=== PATIENT | female | born 1940 | race Caucasian/White ===

== ENCOUNTER → 2017-06-08 | Day surgery (SDC) | payer OTHER ==
[2017-05-26 09:13] VITALS: Ht 156.2 cm; Wt 98.2 kg
[~2017-06-08] VITALS: Ht 156.2 cm; Wt 98.2 kg
[~2017-06-08] MED LIST: 500ML BSS 0.3ML EPI 1:1000PF IRRIG ONE; ACETAMINOPHEN 325 MG TAB PO PRN; AMVISC PLUS 0.8ML SYRINGE INT OCU ONE; AREDS2 PO; ASPI81TA28 PO; ATOR-24 PO; ATROPINE SULFATE 0.1 MG/ML 5ML SYR IV PRN; ATV1 PO; B COCAP3 PO; BRIMONIDINE TART 0.2% OP SOLN PER DROP CHARGE ONE; BSS FLUSH ONE; CLOP1TAB15 PO; ENDOCOAT 0.85ML SYRINGE INT OCU ONE; EpHEDrine SULFATE INJ 50 MG/ML AMP IV PRN; EpINEphrine INJ 1MG/ML AMP 1 MG/ML AMP ONE; LACTATED RINGER'S 1000ML 500 ML IV SCH; LEVO100T7 PO; LIDOCAINE 4% OP SOLN DROP CHARGE ONE; LIDOCAINE 4% OP SOLN DROP CHARGE OPR SCH; LIDOCAINE HCL 1% MPF 2 ML VIAL ONE; LOSA1TAB PO; MIDAZOLAM HCL 1 MG/ML 2ML VIAL ONE; MOXIFLOXACIN OPH SOLN PER DROP CHARGE ONE; NTRGSL/4 UT; POTA-335 PO; POVIDONE-IODINE OP SOLN 30 ML BTL ONE; PROPARACAINE 0.5% OP SOLN PER DROP CHARGE OPR SCH; TOBRAMYCIN/DEXAMETHASONE OPH OINT PER APPLN CHARGE ONE; TRAM-10 PO
[2017-06-08] MEDS: PHENYLEPHRINE HCL 2.5% OP SOLN PER DROP CHARGE OPR SCH ×2 (10:08→10:13)
[2017-06-08] MEDS: TROPICAMIDE 1% OP SOLN PER DROP CHARGE OPR SCH ×2 (10:09→10:14)
[2017-06-08] MEDS: CYCLOPENTOLATE HCL 1% OP SOLN PER DROP CHARGE OPR SCH ×2 (10:10→10:15)
[2017-06-08] MEDS: KETOROLAC 0.5% OP SOLN PER DROP CHARGE OPR SCH ×2 (10:11→10:16)
[2017-06-08] MEDS: MOXIFLOXACIN OPH SOLN PER DROP CHARGE OPR SCH ×2 (10:12→10:25)
--- NOTE | 2017-06-08 10:46 | History & Physical Bridge - [place] ---
H&P Re-Evaluation Bridge Note: I have examined the patient, reviewed the History & Physical and in the interval since the performance of the History & Physical I have noted the following changes of clinical significance: No changes noted
--- NOTE | 2017-06-08 11:41 | Discharge Instructions-SurgCtr ---
Discharge Instructions Date of Service Jun 08, 2017. Visit Reason for Visit: Cataract Right Eye Discharge Discharge Diagnosis / Problem: cataract right eye Discharge Goals Goal(s): Improve function Activity Recommendations Activity Limitations: per Instructions/Follow-up section Lifting Limitations: no more than 5 pounds Anesthesia . Post Anesthesia Instructions: If you have had General Anesthesia or IV Sedation: * Do not drive today. * Resume driving when surgeon permits. * Do not make important decisions or sign legal documents today. * Call surgeon for: 1. Temperature elevations greater than 101 degrees F. 2. Uncontrollable pain. 3. Excessive bleeding. 4. Persistent nausea and vomiting. 5. Medication intolerance (nausea, vomiting or rash). * For nausea and vomiting use only clear liquids such as: tea, soda, bouillon until nausea subsides, then gradually increase diet as tolerated. * If you have any concerns or questions, call your surgeon's office. If physician is unavailable and it is an emergency, call 911 or go to the nearest emergency room. . Instructions / Follow-Up Instructions / Follow-Up ACTIVITY RECOMMENDATIONS: * Light activities * You may walk outside, read, watch television. * Mild irritation and blurred vision are common for the first few days, redness around the white part of the eye is common. MEDICATIONS: Resume previous medications unless instructed otherwise by your surgeon. Eye drops (today and tomorrow): Cipro - one drop in operative eye every 2 hours while awake Prednisolone 1% - one drop in operative eye every 2 hours while awake Bromfenac - one drop in operative eye once daily SPECIAL CARE INSTRUCTIONS: * If any problems or concerns, please call Dr. Smith's office at . * Keep plastic shield taped over eye to sleep at night. * Keep plastic shield taped over eye except to administer eye drops. * Keep plastic shield on until office visit the following day. FOLLOW UP VISIT: Follow-up with Dr. Smith in the [place] office as scheduled. If not already scheduled, please call the office at . Diet Recommendations Home Diet: resume previous diet Procedures Procedures Performed: Right Cataract Phacoemulsification With Intraocular Lens Implant Pending Studies Studies pending at discharge: no Medical Emergencies . Who to Call and When: Medical Emergencies: If at any time you feel your situation is an emergency, please call 911 immediately. . Non-Emergent Contact Non-Emergency issues call your: Food Scientist . . "Provider Documentation" section prepared by Tobias Smith. .
--- NOTE | 2017-06-08 11:44 | [facility] Operative Report ---
Operative Report Operative Date Jun 08, 2017. Pre-Operative Diagnosis Right Eye Cataract Post-Operative Diagnosis Same Procedure(s) Performed Right Cataract Phacoemulsification With Intraocular Lens Implant Surgeon Dr. Marilyn Smith Communications Equipment Supervisor Surgeon(s) None Estimated Blood Loss 0 Findings cataract right eye Fluids (cc crystalloids) see anesthesia record Specimens None Drains none Anesthesia local with sedation Complication(s) None Disposition Recovery Room / PACU Implants mx60 21.5 Indications decreased vision right eye Description of Procedure After informed consent was obtained in the holding area the patient was wheeled back to the operating room where cardiac monitoring leads and oxygen by nasal cannula was administered by Anesthesia. Gentle IV sedation was given, and the patient's right eye was prepped and draped in usual sterile fashion. A wire lid speculum was placed into the right eye and the operating microscope was swung into position. Using 0.12 forceps and a Supersharp blade a paracentesis port was made 2 o'clock hours away from the 9 o'clock position of the patient's right eye. 1% non-preserved Lidocaine was then injected into the anterior chamber for anesthesia. A 2.0 mm keratotome blade was then used to make a shelved clear corneal incision at the 9 o'clock position of the right eye. Amvisc was injected into the anterior chamber and a cystotome and Utrata forceps were used to perform a curvilinear capsulorrhexis. BSS on a hydrodissection cannula was used to hydrodissect the lens nucleus away from the capsular bag. The phacoemulsification handpiece was then used in a stop and chop fashion to remove the lens nucleus. The irrigation and aspiration handpiece was then used to remove the residual cortical material. Amvisc was injected into the capsular bag and anterior chamber and a [employer]ch [employer] Lomb MX60 21.5 Diopter intraocular lens was injected into the capsular bag. Irrigation and aspiration handpiece was used to remove the residual viscoelastic material. The wounds were hydrated and noted to be watertight. The wire lid speculum was removed from the eye. Vigamox, Brimonidine, and TobraDex ointment were placed on the eye and it was shielded. It should be noted that EndoCoat was used extensively during the case to protect the cornea endothelium. DISPOSITION: The patient tolerated the procedure well and was wheeled to the post anesthesia care unit in stable condition. I attest to the content of the Intraoperative Record and any orders documented therein. Any exceptions are noted below. I attest to the content of the Intraoperative Record and any orders documented therein. Any exceptions are noted below.
--- NOTE | 2017-06-08 11:56 | Anesthesia Progress Nt - [facility] ---
Anesthesia Post Op Note Date & Time Jun 08, 2017 at 11:56 Vital Signs Pain Intensity: 0 Vital Signs Past 12 Hours Date Time Temp Pulse Resp B/P (MAP) Pulse Ox O2 Delivery O2 Flow Rate FiO2 06/08/17 11:46 36.5 61 14 138/80 (99) 96 Room Air 06/08/17 10:01 36.4 85 20 158/108 (125) 97 Room Air Notes Mental Status: alert / awake / arousable, participated in evaluation Pt Amnestic to Procedure: Yes Nausea / Vomiting: adequately controlled Pain: adequately controlled Airway Patency, RR, SpO2: stable & adequate BP & HR: stable & adequate Hydration State: stable & adequate Anesthetic Complications: no major complications apparent
[2017-06-08 12:03] VITALS: BP 138/72; PULSE 55; TEMP 36.5; O2SAT 98
== END | disposition home or self-care (01) ==
LOC: X.SURG 09:42
PROVIDERS: ATTEND Ophthalmology
DX: H25.11 Age-related nuclear cataract, right eye (principal); I10 Essential (primary) hypertension; I51.9 Heart disease, unspecified; E03.9 Hypothyroidism, unspecified; E78.5 Hyperlipidemia, unspecified; Z95.1 Presence of aortocoronary bypass graft

== ENCOUNTER 2019-11-20 18:31 | Inpatient (IN) ==
[2019-11-20] MEDS ORDERED: SODIUM CHLORIDE 0.9% 500 ML IV ONE (19:01)
[2019-11-20] MEDS ORDERED: DiphenhydrAMINE HCL 50 MG/ML VIAL IV STA (19:05)
[2019-11-20] MEDS ORDERED: SODIUM CHLORIDE 0.9% 500 ML IV SCH (19:15)
[2019-11-20 19:29] LABS: Basophils # (auto) 0.01 K/uL (0-0.2); Basophils % (auto) 0.1 %; Hematocrit (blood only) 39.2 % (37-47); Hemoglobin 12.9 g/dL (12.0-16.0); Immature Granulocytes # (auto) 0.01 K/uL (0.00-0.02); Immature Granulocytes % (auto) 0.1 %; Lymphocytes # (auto) 0.32 K/uL (1.2-3.4); Mean Corpuscular Hemoglobin 33.4 pg (25-34); Mean Corpuscular Hgb Conc 32.9 g/dL (32-36); Mean Corpuscular Volume 101.6 fL (80-100); Mean Platelet Volume 10.7 fL (7.4-10.4); Monocytes % (auto) 6.2 %; Neutrophils # (auto) 7.24 K/uL (1.4-6.5); Neutrophils % (auto) 89.6 %; Platelet Count 191 K/uL (130-400); RDW Coefficient of Variation 14.7 % (11.5-14.5); RDW Standard Deviation 54.5 fL (36.4-46.3); Red Blood Count 3.86 M/uL (4.2-5.4); White Blood Count 8.08 K/uL (4.8-10.8)
[2019-11-20 19:39] LABS: Partial Thromboplastin Ratio 0.9; Partial Thromboplastin Time 25.1 Seconds (21.0-31.0); Prothrombin Time 10.3 Seconds (9.0-12.0)
[2019-11-20 19:46] LABS: Alanine Aminotransferase 18 U/L (12-78); Albumin Level 3.5 gm/dl (3.4-5.0); Aspartate Aminotransferase 18 U/L (15-37); BUN Creatinine Ratio 18.9 (10-20); Blood Urea Nitrogen 18 mg/dl (7-18); Carbon Dioxide 25 mmol/L (21-32); Chloride 105 mmol/L (98-107); Est GFR (African American) 67.8; Est GFR (Non-African American) 58.5; Glucose 126 mg/dl (70-99); Lipase 42 U/L (73-393); Magnesium 1.8 mg/dl (1.8-2.4); Potassium 3.6 mmol/L (3.5-5.1); Sodium 138 mmol/L (136-145)
[2019-11-20 19:57] LABS: Albumin Globulin Ratio 0.9 (0.9-2); Alkaline Phosphatase 75 U/L (45-117); Bilirubin,Total 0.4 mg/dl (0.2-1); Phosphorus 1.9 mg/dl (2.5-4.9); Total Protein 7.5 gm/dl (6.4-8.2); Troponin I < 0.015 ng/ml (0-0.045)
--- NOTE | 2019-11-20 19:59 | XRay Report ---
XR chest 1V portable HISTORY: Atypical Chest Pain COMPARISON: Chest 11/18/2019. FINDINGS: Persistent elevation right hemidiaphragm. There are poststernotomy changes. The heart is no rmal in size. Mild interstitial thickening is likely chronic. No evidence for pulmonary edema. No new focal lung consolidations to suggest pneumonia. No pleural effusions. No pneumothorax. IMPRESSION: 1. No acute process within the chest. 2. Chronic elevation of the right hemidiaphragm. 3. No change in the chronic interstitial thickening. ACT 112: Negative or not required by law. Electronically signed by: Lopez Mina M.D. 11/20/2019 7:57 PM
[2019-11-20 20:12] LABS: T4 Free Thyroxine 0.67 ng/dl (0.8-1.6)
[2019-11-20] MEDS ORDERED: OPTIRAY 320 125ml IV PRN (20:47)
--- NOTE | 2019-11-20 20:52 | CT Scan Report ---
HEAD CT NONCONTRAST CT DOSE: 1258.80 mGy.cm HISTORY: vertigo TECHNIQUE: Multiaxial CT images of the head were performed without the use of intravenous contrast. A utomated exposure control was utilized for this study. A dose lowering technique was utilized adheri ng to the principles of ALARA. Comparison: Head CT 01/14/2006. Findings: Small bilateral mastoid effusions. Fluid levels within the sphenoid sinuses with near compl ete opacification of the right sphenoid sinus. The calvarium and skull base are intact. There is no m ass, hematoma, midline shift, acute infarct. White matter hypodensity is nonspecific but suggestive o f microvascular ischemic change. The ventricles and sulci demonstrate mild age-related involutional c hanges. 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 Impression: No acute intracranial abnormality. Atrophy and microvascular ischemic changes. Sinus disease as descr ibed above. ACT 112: Negative or not required by law. Electronically signed by: Lopez Mina M.D. 11/20/2019 8:51 PM
--- NOTE | 2019-11-20 21:05 | CT Scan Report ---
HEAD & NECK CTA HISTORY: vertigo TECHNIQUE: Multiaxial CT images of the head were performed following the intravenous administration o f contrast to evaluate the major cerebral vessels. Multiaxial CT images of the neck were also perform ed following the intravenous administration of contrast to evaluate the major cervical vessels. Maxim um intensity projection images were also obtained. A dose lowering technique was utilized adhering to the principles of ALARA. COMPARISON: None. FINDINGS: There is no mass, hematoma, midline shift, or acute infarct. Visualized intracranial internal carotid arteries, distal vertebral arteries, and basilar artery are widely patent. There is no significant s tenosis, occlusion, or aneurysm seen within the bilateral ACAs, MCAs, or assembler utility buildings. 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 The right P1 segment is also severely hypoplastic with the right BODY TRIMMER being fed primarily through the posterior communicating artery. 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 Calcified plaque seen within the bilateral carotid siphons. The aortic arch and proximal great vessels are widely patent. Bilateral vertebral arteries and bila teral common carotid arteries are widely patent. There is approximately 60% focal stenosis seen at th e origin of the right internal carotid artery. Focal penetrating ulcer at the takeoff of the left int ernal carotid artery which measures 4 mm. No significant stenosis within the left internal carotid ar joel. IMPRESSION: 1. No significant stenosis, occlusion, or aneurysm within the [place]. 2. Approximately 60% focal stenosis at the origin of the right internal carotid artery. 2. Focal penetrating ulcer at the takeoff of the left internal carotid artery which measures 4 mm. No significant stenosis. ACT 112: Negative or not required by law. Electronically signed by: Lopez Mina M.D. 11/20/2019 9:04 PM
--- NOTE | 2019-11-20 21:05 | CT Scan Report ---
HEAD & NECK CTA HISTORY: vertigo TECHNIQUE: Multiaxial CT images of the head were performed following the intravenous administration o f contrast to evaluate the major cerebral vessels. Multiaxial CT images of the neck were also perform ed following the intravenous administration of contrast to evaluate the major cervical vessels. Maxim um intensity projection images were also obtained. A dose lowering technique was utilized adhering to the principles of ALARA. COMPARISON: None. FINDINGS: There is no mass, hematoma, midline shift, or acute infarct. Visualized intracranial internal carotid arteries, distal vertebral arteries, and basilar artery are widely patent. There is no significant s tenosis, occlusion, or aneurysm seen within the bilateral ACAs, MCAs, or on line csr. 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 The right P1 segment is also severely hypoplastic with the right EYEGLASS FRAMES POLISHER being fed primarily through the posterior communicating artery. 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 Calcified plaque seen within the bilateral carotid siphons. The aortic arch and proximal great vessels are widely patent. Bilateral vertebral arteries and bila teral common carotid arteries are widely patent. There is approximately 60% focal stenosis seen at th e origin of the right internal carotid artery. Focal penetrating ulcer at the takeoff of the left int ernal carotid artery which measures 4 mm. No significant stenosis within the left internal carotid ar joel. IMPRESSION: 1. No significant stenosis, occlusion, or aneurysm within the [place]. 2. Approximately 60% focal stenosis at the origin of the right internal carotid artery. 2. Focal penetrating ulcer at the takeoff of the left internal carotid artery which measures 4 mm. No significant stenosis. ACT 112: Negative or not required by law. Electronically signed by: Lopez Mina M.D. 11/20/2019 9:04 PM
[2019-11-20] MEDS ORDERED: MAGNESIUM SULFATE / D5W 1 GM/100 ML BAG IV ONE (21:41)
[2019-11-20] MEDS ORDERED: POT PHOSPHATE MONOBASIC W/ SOD TAB PO STA (21:41)
[2019-11-21] MEDS ORDERED: GUAIFENESIN/CODEINE 100MG/10MG 5ML UDC PO PRN (00:24)
[2019-11-21] MEDS ORDERED: NITROGLYCERIN SL 0.4 MG/TAB TAB SL PRN ×2 (00:24)
[2019-11-21] MEDS ORDERED: SULFACETAMIDE SODIUM TOP SCH (00:24)
[2019-11-21] MEDS ORDERED: ONDANSETRON INJ 2 MG/ML 2 ML VIAL IV PRN (00:24)
[2019-11-21] MEDS ORDERED: NYSTATIN/TRIAMCIN CR 15 GM TUBE EXT PRN (00:24)
[2019-11-21] MEDS ORDERED: POLYETHYLENE (MIRALAX) 17 GM PACK PO PRN (00:24)
[2019-11-21] MEDS ORDERED: ACETAMINOPHEN 325 MG TAB PO PRN (00:24)
[2019-11-21] MEDS ORDERED: AZITHROMYCIN 250 MG TAB PO ONE (00:24)
[2019-11-21] MEDS ORDERED: TRAMADOL HCL 50 MG TABLET PO PRN (00:24)
[2019-11-21] MEDS ORDERED: LORazepam 1 MG TAB PO PRN (00:24)
[2019-11-21] MEDS ORDERED: GADOBUTROL 65ML VIAL IV PRN (01:59)
--- NOTE | 2019-11-21 02:06 | History and Physical Report ---
DATE OF ADMISSION: 11/20/2019 CHIEF COMPLAINT: Vertigo and fall. HISTORY OF PRESENT ILLNESS: This is a 79-year-old female with past medical history significant for non-ST elevation NC in 2006 with urgent CABG; history of diabetes, currently not on medication; hypertension; obesity; hyperlipidemia; PVCs; hypothyroidism; depression, who lives with his family, presents with vertigo kind of symptoms. The patient was here couple of days ago in the ER because of syncope. She was at the [facility]. When she got up, she felt lightheaded and lost consciousness. At that time, no seizure-like activity . In the Er she did was advised for admission, but the patient decided to go home.She is also having cough since several weeks now. She had a pneumonia and flu about a month ago. Since then the cough did not go away. She is still coughing a lot and she is not sleeping well because of cough, mostly dry cough. Denies any fever, chills. No chest pain, no shortness of breath, no headache. Feeling dizzy and lightheaded when walking and also some imbalance when ambulating. Today again while she was ambulating, she again felt the room spinning and fell down, but she was able to get up and walk again. Because of the ongoing symptoms, and she had second episode of falling down, she was brought in the ER. Currently resting comfortably and hemodynamically stable. Family in the room. Denies any headache, no blurred vision, no earache. Has some runny nose. Denies any sore throat. No dysphagia, odynophagia. Appetite is okay. No abdominal pain. Normal bladder movements. No hematuria. She has couple episodes of diarrhea today, but no black stools or blood in the stools. Denies any swelling in the legs. The imaging studies in the ER showed CT of the head is unremarkable. CTA of the head and neck was also done, which showed 60% focal stenosis of the origin of right internal carotid artery and focal penetrating ulcer at tip of the left internal carotid artery measuring 4 mm. No significant stenosis. ALLERGIES: METRONIDAZOLE. PAST MEDICAL HISTORY: As mentioned above. PAST SURGICAL HISTORY: CABG, sacroiliac joint injection, left cataract surgery, injection of lumbosacral spine. MEDICATIONS: The patient currently on aspirin 81 mg p.o. daily, atorvastatin 40 mg p.o. daily, vitamin D 2000 units p.o. daily, Plavix 75 mg p.o. daily, Flonase 2 sprays intranasally daily, levothyroxine 100 mcg p.o. daily, Ativan 1 mg p.o. at bedtime p.r.n., losartan 25 mg p.o. b.i.d., nitroglycerin 0.4 mg sublingual p.r.n., nystatin/triamcinolone topical b.i.d. p.r.n., potassium chloride 20 mEq p.o. b.i.d., stress B complex vitamin C and 1 tablet daily, sulfacetamide 1 apply topical b.i.d., tramadol 50 mg p.o. b.i.d. p.r.n. FAMILY HISTORY: Significant for father had heart disorder, hypertension, stroke. Mother has hypertension. SOCIAL HISTORY: , lives with family. No smoking, no alcohol, no drug use. REVIEW OF SYMPTOMS: As per HPI. Rest of review of symptoms negative. PHYSICAL EXAMINATION: GENERAL: The patient is of moderate build, not in acute distress. VITAL SIGNS: Temperature 37.2, pulse 84, respiratory rate 20, blood pressure 152/88, oxygen 94% room air. HEENT: No pallor, no icterus. Pupils equal, round, reactive to light. Extraocular muscles intact. No nystagmus seen. NECK: No JVD, no carotid bruit, no neck masses. CARDIOVASCULAR: S1, S2 heard. Regular rate and rhythm. No murmur, no gallop. RESPIRATORY SYSTEM: Normal AP diameter. No accessory muscle use. No wheezing, no crackles. ABDOMEN: Soft, bowel sounds present, nontender. No distention. CENTRAL NERVOUS SYSTEM: Alert and awake and oriented. No pronator drift. Coordination of movements normal. [id number] test normal. Sensation is intact. EXTREMITIES: Mild pedal edema, no erythema seen. LABORATORY DATA: WBC 8, hemoglobin 12.9, hematocrit 39.2, platelets 191. PT 13.3, INR 1, APTT 25.1. Sodium 138, potassium 3.6, chloride 105, bicarb 25, BUN 18 and creatinine 0.9, serum glucose 126, calcium 9, phosphorus 1.9, magnesium 1.8. Total bilirubin 0.4, AST 18, ALT 18, alkaline phosphatase 74. Troponin I less than 0.015. Lipase 42. TSH 4.5, free T4 0.6. IMAGING: CT of the head: No acute intracranial abnormality, atrophy or microvascular ischemic changes seen. CTA of the head and neck: No significant stenosis, occlusion or aneurysm within the [place]. Approximately 60% focal stenosis of the origin of right internal carotid artery, focal penetrating ulcer at tip of the internal carotid artery measuring 4 mm. No significant stenosis seen. Chest x-ray: No acute process seen. EKG: Normal sinus rhythm with rate of 79, no acute ST changes seen. ASSESSMENT AND PLAN: This is a 79-year-old female who presents with vertigo and syncope couple of days ago 1. Syncope couple of days ago, probably orthostatic, Today had vertigo with fall at home and some imbalance. On exam, she was benign. No nystagmus seen and no spinning of the room on movement of the head. We will observe on tele floor. We will do echocardiogram and also MRI of the head. Antivert p.r.n. and and consult Neurology in a.m. for further recommendations.PT/OT. 2. Carotid stenosis on the CTA of the neck, also showing some ulceration, 60% stenosis to right internal carotid artery and focal penetrating ulcer at the tip of the left internal carotid artery measuring 4 mm. We will consult Vascular Surgery in a.m. for further recommendations. 3. Diabetes, currently diet controlled, not on medications. Follow HbA1c levels. 4. History of CAD, status post CABG. On aspirin, statin, Plavix. Currently seems stable. Follow echocardiogram. 5. History of hypothyroidism. Synthroid 100 mcg. TSH slightly borderline high with low free T4. We will repeat the labs in a.m. May need to adjust the medication. Follow up with the PCP. 6. Hypertension. Continue losartan. We will monitor the blood pressure. 7. Hyperlipidemia, on statin. 8. DVT prophylaxis, SCDs for now. DISPOSITION: Admit to medical floor. Expected to discharge home and follow with family doctor. PT and OT prior to discharge. Social Service to help with discharge planning. ANNIE
[2019-11-21] MEDS: POTASSIUM CHLORIDE 20 MEQ TABCR PO SCH ×2 (02:16→08:05)
[2019-11-21] MEDS: LOSARTAN POTASSIUM 25 MG TAB PO SCH ×2 (02:16→08:04)
--- NOTE | 2019-11-21 03:15 | Emergency Department Note ---
Entered by Jesenia Harley acting as a scribe for History of Present Illness General Chief complaint: Vertigo Stated complaint: VERTIGO, FALL Time Seen by Provider: 11/20/19 18:45 Source: patient History of Present Illness Onset (ago): day(s) 3 Location: head Severity: similar to prior episodes Pain Consistency: + constant Relieved By: + none Exacerbated By: + other (Sitting up) Associated symptoms: + cough and + other (vertigo, diarrhea); no nausea/vomiting Treatments prior to arrival: none The patient is a 79 year old female who presents to the Emergency Room with complaints of vertigo that has been ongoing over the past 3 days. The patient was in the ED 2 days ago for a similar vertigo episode. She notes that she continued to experience these symptoms over the last 2 days. She states that her dizziness worsens when she sits up or gets up from a sitting position. The patients family states she was complaining of diarrhea, cough, and loss of appetite as well. She denies black or bloody stool, vomiting, and abdominal pa in. She notes that swelling in her legs is normal. The patient states she is willing to stay in the hospital if needed. Home Medications Home Medications Medication Instructions Recorded Confirmed Type Stress B-Complex/Vit C/Zinc 1 tab PO DAILY 09/05/18 11/20/19 History aspirin 81 mg PO DAILY 09/05/18 11/20/19 History atorvastatin 40 mg PO DAILY 09/05/18 11/20/19 History cholecalciferol (vitamin D3) 2,000 unit PO DAILY 09/05/18 11/20/19 History [Vitamin D3] clopidogrel 75 mg PO DAILY 09/05/18 11/20/19 History fluticasone propionate 2 spray INTRANASAL DAILY 09/05/18 11/20/19 History levothyroxine 100 mcg PO DAILYBB 09/05/18 11/20/19 History lorazepam 1 mg PO HS PRN 09/05/18 11/20/19 History losartan 25 mg PO BID 09/05/18 11/20/19 History nitroglycerin [Nitrostat] 0.4 mg SUBLINGUAL UD PRN MDD 3 09/05/18 11/20/19 History DOSES nystatin-triamcinolone 1 applic TOPICAL BID PRN 09/05/18 11/20/19 History potassium chloride [Klor-Con M20] 20 meq PO BID 09/05/18 11/20/19 History sulfacetamide sodium (acne) 1 applic TOPICAL BID 09/05/18 11/20/19 History tramadol 50 mg tablet 50 mg PO BID PRN 05/31/19 11/20/19 History Allergies Allergy/AdvReac Type Severity Reaction Status Date / Time metronidazole AdvReac Mild Diarrhea Verified 11/20/19 19:43 Past Med/Surg History Medical History Cat bite of right hand with infection (Resolved) Chronic ischemic heart disease, unspecified (Chronic) Congestive heart failure, unspecified (Resolved) Contusion of left foot (Resolved) Diabetes (Chronic) Heart attack (Resolved) Hypertension (Chronic) Hypothyroidism, unspecified (Chronic) Lumbar pain with radiation down left leg (Acute) Postsurgical aortocoronary bypass status (Resolved) Surgical History H/O tubal ligation (Chronic) Hx of CABG (Chronic) Social History Preferred Language: Niuean Communication Ability: Effective Hearing Ability: Normal 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 and A total of 10 systems reviewed and were otherwise negative Physical Exam Vital Signs Vital Signs - 24 hr 11/20/19 18:37 11/20/19 20:31 11/20/19 22:00 Temperature 37.2 C Temperature Source Oral Pulse Rate 101 H Pulse Rate [Apical] 84 Respiratory Rate 20 20 20 Respiratory Effort / Characteristics Non-Labored Spontaneous Non-Labored Spontaneous Non-Labored Spontaneous Respiratory Depth Normal Normal Normal Blood Pressure 163/83 H Blood Pressure [Right Arm] 135/82 152/88 H Blood Pressure Mean 109 Blood Pressure Mean [Right Arm] 99 109 Blood Pressure Position [Right Arm] Lying Lying Pulse Oximetry 92 94 94 Oxygen Delivery Method Room Air Room Air Room Air Sepsis Recent Fever Within 48 Hours No Sepsis Action Taken by Nursing No Action Required GENERAL: Awake, alert, fatigued but well-appearing, in no distress HENT: Normocephalic, atraumatic. Oropharynx with dry mucous membranes and otherwise unremarkable. EYES: Subtle chronic left eyelid ptosis. Normal conjunctiva. Sclera non-icteric. EOMI. No nystamgus. PEARRL. NECK: Supple. No nuchal rigidity. FROM. No JVD. RESPIRATORY: CTAB. CARDIAC: Regular rate, normal rhythm. Extremities warm and well perfused. Pulses equal. ABDOMEN: Soft, non-distended. No tenderness to palpation. No rebound or guarding. No masses. RECTAL: Deferred. MUSCULOSKELETAL: Chest examination reveals no tenderness. The back is symmetrical on inspection without obvious abnormality. There is no CVA tenderness to palpation. No joint edema. LOWER EXTREMITIES: Calves are equal size bilaterally and non-tender. No edema. No discoloration. NEURO: Normal sensorium. No sensory or motor deficits noted. 5/5 strength and SILT x4 extremities. Cerebellar function intact, including finger to nose, alternating palms, heel to carrera. SKIN: No rash or jaundice noted. Course Course 1853: Past medical records reviewed. The patient was evaluated in room C05. A complete history and physical exam was performed. 2213: I rechecked on the patient and discussed the possibility of staying in the hospital due to being dizzy and unstable. She was agreeable to staying for evaluation 2227: I spoke to Dr. Taylor, [facility] hospitalist, who agreed to take over care of the patient. The patient is agreeable to this plan and is willing to stay in the hospital. The patient will stay for further evaluation. Administered Medications Gadobutrol (Gadavist 65ml) 9 ml IV ONCE PRN PRN Reason: Interaction Checking Stop: 11/25/19 01:58 Last Admin: 11/21/19 01:40 Dose: 9 ml Documented by: [id number] Guaifenesin/Codeine Phosphate (Robitussin-Ac Sugar Free) 5 ml PO Q6H PRN PRN Reason: Cough Stop: 12/21/19 00:23 Last Admin: 11/21/19 00:40 Dose: 5 ml Documented by: [id number] Losartan Potassium (Cozaar) 25 mg PO BID RIVER Stop: 03/25/20 00:23 Last Admin: 11/21/19 02:16 Dose: 25 mg Documented by: [id number] Potassium Chloride (Klor-Con M20) 20 meq PO BID RIVER Stop: 12/21/19 00:23 Last Admin: 11/21/19 02:16 Dose: 20 meq Documented by: [id number] Discontinued Medications Azithromycin (Zithromax) 500 mg PO NOW ONE Stop: 11/21/19 00:25 Last Admin: 11/21/19 02:15 Dose: 500 mg Documented by: [id number] Diphenhydramine HCl (Benadryl) 12.5 mg IV NOW STA Stop: 11/20/19 19:06 Last Admin: 11/20/19 19:24 Dose: 12.5 mg Documented by: [id number] Sodium Chloride (Nss) 500 mls @ 999 mls/hr IV .Q31M ONE Stop: 11/20/19 19:31 Last Infusion: 11/20/19 19:57 Dose: 0 mls/hr Documented by: [id number] Admin: 11/20/19 19:24 Dose: 999 mls/hr Documented by: [id number] Magnesium Sulfate/Dextrose (Magnesium Sulfate / D5w) 1 gm in 100 mls @ 100 ml s/hr IV ONE ONE Stop: 11/20/19 22:40 Last Infusion: 11/21/19 00:04 Dose: 0 mls/hr Documented by: [id number] Admin: 11/20/19 22:28 Dose: 100 mls/hr Documented by: [id number] Ioversol (Optiray 320 125ml) 120 ml IV ONCE PRN PRN Reason: Interaction Checking Stop: 11/24/19 20:46 Last Admin: 11/20/19 20:47 Dose: 120 ml Documented by: [id number] Potassium Phosphate (Phospha 250 Neutral 155-852-130 Mg) 2 tab PO NOW STA Stop: 11/20/19 21:42 Last Admin: 11/20/19 22:28 Dose: 2 tab Documented by: [id number] Medical Decision Making Differential Diagnosis Differential diagnosis includes: benign positional vertigo, dehydration, hypovolemia, anemia, tumor, infection, hypoglycemia, electrolyte abnormalities, cardiac sources, intracerebral event, toxicologic, neurologic, as well as others were entertained. Medical Records Attestation: I reviewed the patient's medical records. Home Medications Current Medication List: was personally reviewed by me Laboratory Data Attestation: I reviewed the patient's lab results. Result diagrams: 11/20/19 19:18 11/20/19 19:18 Lab Results 11/20/19 11/20/19 11/20/19 Range/Units 19:18 19:18 19:18 WBC 8.08 (4.8-10.8) K/uL RBC 3.86 L (4.2-5.4) M/uL Hgb 12.9 (12.0-16.0) g/dL Hct 39.2 (37-47) % MCV 101.6 H (80-100) fL MCH 33.4 (25-34) pg MCHC 32.9 (32-36) g/dL RDW Std Deviation 54.5 H (36.4-46.3) fL RDW Coeff of Dawson 14.7 H (11.5-14.5) % Plt Count 191 (130-400) K/uL MPV 10.7 H (7.4-10.4) fL Immature Gran % (Auto) 0.1 % Neut % (Auto) 89.6 % Lymph % (Auto) 4.0 % [place] % (Auto) 6.2 % Eos % (Auto) 0.0 % Baso % (Auto) 0.1 % Immature Gran # (Auto) 0.01 (0.00-0.02) K/uL Neut # (Auto) 7.24 H (1.4-6.5) K/uL Lymph # (Auto) 0.32 L (1.2-3.4) K/uL [place] # (Auto) 0.50 (0.11-0.59) K/uL Eos # (Auto) 0.00 (0-0.5) K/uL Baso # (Auto) 0.01 (0-0.2) K/uL PT 10.3 (9.0-12.0) Seconds INR 1.0 (0.9-1.1) APTT 25.1 (21.0-31.0) Seconds PTT Ratio 0.9 Sodium 138 (136-145) mmol/L Potassium 3.6 (3.5-5.1) mmol/L Chloride 105 (98-107) mmol/L Carbon Dioxide 25 (21-32) mmol/L Anion Gap 8.0 (3-11) BUN 18 (7-18) mg/dl Creatinine 0.94 (0.6-1.2) mg/dl Est Cr Clr Drug Dosing Not Reportable Est GFR ( Amer) 67.8 Est GFR (Non-Af Amer) 58.5 BUN/Creatinine Ratio 18.9 (10-20) Glucose 126 H (70-99) mg/dl Calcium 9.0 (8.5-10.1) mg/dl Phosphorus 1.9 L (2.5-4.9) mg/dl Magnesium 1.8 (1.8-2.4) mg/dl Total Bilirubin 0.4 (0.2-1) mg/dl AST 18 (15-37) U/L ALT 18 (12-78) U/L Alkaline Phosphatase 75 (45-117) U/L Troponin I < 0.015 (0-0.045) ng/ml Total Protein 7.5 (6.4-8.2) gm/dl Albumin 3.5 (3.4-5.0) gm/dl Globulin 4.0 (2.5-4.0) gm/dl Albumin/Globulin Ratio 0.9 (0.9-2) Lipase 42 L (73-393) U/L TSH 4.530 H (0.300-4.500) uIu/ml Free T4 0.67 L (0.8-1.6) ng/dl Imaging Data Radiologist's Impression: Radiology results as stated below per my review and the radiologist's interpretation: HEAD CT NONCONTRAST CT DOSE: 1258.80 mGy.cm HISTORY: vertigo TECHNIQUE: Multiaxial CT images of the head were performed without the use of intravenous contrast. Automated exposure control was utilized for this study. A dose lowering technique was utilized adhering to the principles of ALARA. Comparison: Head CT 01/14/2006. Findings: Small bilateral mastoid effusions. Fluid levels within the sphenoid sinuses with near complete opacification of the right sphenoid sinus. The calvarium and skull base are intact. There is no mass, hematoma, midline shift, acute infarct. White matter hypodensity is nonspecific but suggestive of microvascular ischemic change. The ventricles and sulci demonstrate mild age- related involutional changes. 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 Impression: No acute intracranial abnormality. Atrophy and microvascular ischemic changes. Sinus disease as described above. ACT 112: Negative or not required by law. Electronically signed by: Lopez Mina M.D. 11/20/2019 8:51 PM HEAD & NECK CTA HISTORY: vertigo TECHNIQUE: Multiaxial CT images of the head were performed following the int ravenous administration of contrast to evaluate the major cerebral vessels. Multiaxial CT images of the neck were also performed following the intravenous administration of contrast to evaluate the major cervical vessels. Maximum intensity projection images were also obtained. A dose lowering technique was utilized adhering to the principles of ALARA. COMPARISON: None. FINDINGS: There is no mass, hematoma, midline shift, or acute infarct. Visualized intracranial internal carotid arteries, distal vertebral arteries, and basilar artery are widely patent. There is no significant stenosis, occlusion, or aneurysm seen within the bilateral ACAs, MCAs, or pharmacist in charge. The distal right vertebral artery is severely hypoplastic. The right P1 segment is also severely hypoplastic with the right MEAT BONER being fed primarily through the posterior communicating artery. This is considered to be a normal variant. Calcified plaque seen within the bilateral carotid siphons. The aortic arch and proximal great vessels are widely patent. Bilateral vertebral arteries and bilateral common carotid arteries are widely patent. There is approximately 60% focal stenosis seen at the origin of the right internal carotid artery. Focal penetrating ulcer at the takeoff of the left internal carotid artery which measures 4 mm. No significant stenosis within the left internal carotid artery. IMPRESSION: 1. No significant stenosis, occlusion, or aneurysm within the kiana of [place]. 2. Approximately 60% focal stenosis at the origin of the right internal carotid artery. 2. Focal penetrating ulcer at the takeoff of the left internal carotid artery which measures 4 mm. No significant stenosis. ACT 112: Negative or not required by law. Electronically signed by: Lopez Mina M.D. 11/20/2019 9:04 PM XR chest 1V portable HISTORY: Atypical Chest Pain COMPARISON: Chest 11/18/2019. FINDINGS: Persistent elevation right hemidiaphragm. There are poststernotomy changes. The heart is normal in size. Mild interstitial thickening is likely chronic. No evidence for pulmonary edema. No new focal lung consolidations to suggest pneumonia. No pleural effusions. No pneumothorax. IMPRESSION: 1. No acute process within the chest. 2. Chronic elevation of the right hemidiaphragm. 3. No change in the chronic interstitial thickening. ACT 112: Negative or not required by law. Electronically signed by: Lopez Mina M.D. 11/20/2019 7:57 PM ECG Data Indication: + other (vertigo) Rate (beats per minute): 79 Rhythm: + normal sinus ECG Intervals/blocks: + Normal QRS (90) and + Normal QT-c (433) ECG [place]: + Normal ECG ST segments: no ST elevation and no T-wave inversions ECG Findings: no PACs and no PVCs Blood Pressure Blood Pressure Findings: Elevated blood pressure Blood Pressure Disposition: further management by hospitalist JOSE ANTONIO Narrative The patient is a pleasant 79-year-old woman with a past medical history of hypothyroidism, hypertension, hyperlipidemia who presents emergency department with continued unsteadiness and dizziness/vertigo since being seen in the emergency department 2 days ago when onset of symptoms occurred in the setting of being at the [employer] [facility] with history that was suggestive of orthostasis per HPI. While the patient reports she felt improved on her last ED visit where she preferred to be discharged despite being offered admission, she reports her symptoms subsequently continued leading to 2 falls today where she denied hitting her head, losing consciousness, or suffering any injury. On arrival the patient is fatigued appearing but no acute distress, afebrile stable vital signs. On exam the patient appears clinically dry. She has otherwise no focal neuro deficits. She has a slight left eyelid ptosis that is chronic per the patient and family. EKG without overt acute ischemia. Chest x-ray negative for acute process. WBC, H/H and platelets within normal limits. Chemistry without acidosis. Phosphorus 1.9 with repletion provided. Magnesium 1.8 with repletion provided. Electrolytes and LFTs otherwise unremarkable. Troponin negative/undetectable. Thyroid levels are slightly abnormal with free T4 of 0.67 and TSH of 4.53 in the setting of being on Synthroid. CT head negative for acute ischemia and otherwise shows atrophy and microvascular ischemic changes. CTA of the head and neck demonstrates 60% focal stenosis at the origin of the right ICA as well as a focal penetrating ulcer at the takeoff of the left ICA but no significant stenosis. The patient was reevaluated and felt improved after IV fluid hydration. However, given the patient's continued symptoms reasonable to proceed with admission for stroke evaluation given her continued unsteadiness. The patient and family were agreeable with this. Case was discussed with Dr. Taylor, [facility] hospitalist, who will evaluate the patient for admission. Continuous Cardiac Monitoring: An order was placed for continuous cardiac monitoring. The monitor shows a rate of 79 with normal sinus rhythm. Impression & Plan Vertigo, Hypothyroidism, Carotid stenosis, Dehydration, Hypophosphatemia, Hypomagnesemia Discharge Plan Visit Data *Final* Discharge Date/Time: 11/21/19 00:04 Chief Complaint: Vertigo Stated Complaint: VERTIGO, FALL ED Provider: Bill Parker Discharge Problem: Vertigo, Hypothyroidism, Carotid stenosis, Dehydration, Hypophosphatemia, Hypomagnesemia Patient Disposition: Admitted As Inpatient Discharge Instructions Interventions: ED Discharge Assessment Last Done: 11/21/19 00:04 Discharge Problem: Hypothyroidism Qualifiers: Hypothyroidism type: unspecified Qualified Code(s): E03.9 - Hypothyroidism, unspecified Carotid stenosis Qualifiers: Laterality: unspecified laterality Qualified Code(s): I65.29 - Occlusion and stenosis of unspecified carotid artery The scribe's documentation has been prepared under my direction and personally reviewed by me in its entirety. I confirm that the note above accurately reflects all work, treatment, procedures, and medical decision making performed by me.
[2019-11-21] MEDS ORDERED: LEVOTHYROXINE SODIUM 100 MCG TABLET PO SCH (06:30)
[2019-11-21 06:36] LABS: Basophils # (auto) 0.01 K/uL (0-0.2); Basophils % (auto) 0.1 %; Eosinophils # (auto) 0.05 K/uL (0-0.5); Eosinophils % (auto) 0.7 %; Hematocrit (blood only) 38.2 % (37-47); Hemoglobin 12.2 g/dL (12.0-16.0); Immature Granulocytes # (auto) 0.01 K/uL (0.00-0.02); Immature Granulocytes % (auto) 0.1 %; Lymphocytes # (auto) 0.83 K/uL (1.2-3.4); Lymphocytes % (auto) 11.8 %; Mean Corpuscular Hemoglobin 33.1 pg (25-34); Mean Corpuscular Hgb Conc 31.9 g/dL (32-36); Mean Corpuscular Volume 103.5 fL (80-100); Monocytes # (auto) 0.84 K/uL (0.11-0.59); Monocytes % (auto) 11.9 %; Neutrophils % (auto) 75.4 %; Platelet Count 177 K/uL (130-400); RDW Coefficient of Variation 14.9 % (11.5-14.5); RDW Standard Deviation 57.1 fL (36.4-46.3); Red Blood Count 3.69 M/uL (4.2-5.4); White Blood Count 7.04 K/uL (4.8-10.8)
--- NOTE | 2019-11-21 06:55 | Magnetic Resonance Report ---
MR brain wo/w con HISTORY: 79 years-old Female vertigo, imbalance acute dizziness with vertigo COMPARISON: CT head, CTA head and neck 11/20/2019, head CT 01/14/2006 TECHNIQUE: Multiplanar multiseque nce MRI of the brain was obtained both with and without the use of 9.0 mL Gadavist FINDINGS: There is no restricted diffusion to suggest acute or subacute infarct. The midline structures includi ng the corpus callosum, brainstem, optic chiasm, pituitary and pineal glands appear unremarkable on t he sagittal T1 series. There is no cerebellar tonsillar herniation. Degenerative changes of the cervi dorota spine noted. There is no acute intracranial hemorrhage, midline shift, abnormal extra-axial collection, hydrocepha dileep or intracranial mass. Age-related involutional changes. Moderate to extensive T2/FLAIR hyperinten sities about the white matter are noted. Small focus of encephalomalacia and gliosis is noted within the left parietal lobe, image 19 series 8. Study is mildly motion degraded. There is no abnormal intr a-axial or extra-axial enhancement identified. The major flow voids appear patent. Moderate left and large right mastoid effusions. Moderate mucosal thickening of the sphenoid sinuses with mild mucosal thickening of the ethmoid air cells. Prior bilateral lens replacement. The the soft tissues are unrem arkable. There is an ill-defined area of decreased T1 and T2 signal involving the left parietal shila rium measuring 1.3 x 1.5 cm. IMPRESSION: 1. No acute intracranial abnormality, specifically there is no evidence of acute or subacute infarct. 2. Age-related involutional changes with moderate to extensive T2/FLAIR hyperintensities about the wh ite matter suggestive of probable chronic microvascular ischemic disease. 3. Indeterminate 1.3 x 1.5 cm T1 and T2 signal lesion within the left parietal calvarium without katharina elate on the comparison CT scan. As a precautionary measure, evaluation with a nonemergent follow-up bone scan may be considered. ACT 112: Negative or not required by law. The above report was generated using voice recognition software. It may contain grammatical, syntax o r spelling errors. Electronically signed by: Cesar Rodriguez M.D. 11/21/2019 6:54 AM
[2019-11-21] MEDS ORDERED: MECLIZINE 12.5 MG TAB PO PRN (07:00)
[2019-11-21 07:01] LABS: Estimated Average Glucose 128 mg/dl; Hemoglobin A1C 6.1 % (4.5-5.6)
[2019-11-21 07:12] LABS: BUN Creatinine Ratio 18.2 (10-20); Calcium 8.5 mg/dl (8.5-10.1); Creatinine Clr Calc Pharmacy 65.3 ml/min; Est GFR (African American) 86.3; Est GFR (Non-African American) 74.5; Magnesium 2.3 mg/dl (1.8-2.4); Potassium 3.6 mmol/L (3.5-5.1)
[2019-11-21 07:23] LABS: Thyroid Stimulating Hormone 4.38 uIu/ml (0.300-4.500)
[2019-11-21] MEDS ORDERED: CLOPIDOGREL BISULFATE 75 MG TAB PO SCH (09:00)
[2019-11-21] MEDS ORDERED: ATORVASTATIN 40 MG TAB PO SCH (09:00)
[2019-11-21] MEDS ORDERED: ASPIRIN 81 MG ECTAB PO SCH (09:00)
[2019-11-21] MEDS ORDERED: FLUTICASONE PROPIONATE NA SPR 16 GM BTL SCH (09:00)
[2019-11-21] MEDS ORDERED: CHOLECALCIFEROL 1,000 UNITS 25 MCG TAB PO SCH (09:00)
[2019-11-21] MEDS ORDERED: VITAMIN B COMPLEX TAB PO SCH (09:00)
--- NOTE | 2019-11-21 10:20 | Electrocardiogram Report ---
Test Reason : Blood Pressure : / mmHG Vent. Rate : 079 BPM Atrial Rate : 079 BPM P-R Int : 152 ms QRS Dur : 090 ms QT Int : 378 ms P-R-T Axes : 030 -07 061 degrees QTc Int : 433 ms Normal sinus rhythm Nonspecific ST abnormality Abnormal ECG Confirmed by Nelson Romano ([id number]) on 11/21/2019 10:20:13 AM Referred By: REFERRED SELF Confirmed By:Orlando Romano
--- NOTE | 2019-11-21 10:24 | Consultation ---
Date of Consultation November 21, 2019 Assessment & Plan (1) Carotid stenosis: Pt with small, focal, penetrating ulcer L ICA, and mild (60%) stenosis of R ICA incidentally noted on neck CTA. No evidence of CVA or TIA. Pt imaging reviewed by Dr Blum. No indications for vascular surgical intervention at this time. Recommend pt undergo outpt follow up with carotid US in 6 months or 1 year, done by her PCP. Please call if needed. Laterality: unspecified laterality Qualified Code(s): I65.29 - Occlusion and stenosis of unspecified carotid artery History of Present Illness Reason for Consultation: ICAS, L ICA penetrating ulcer Attending Physician: Hazel Patel MD History of Present Illness 79 yo f with hx of CAD s/p CABG, hypothyroidism, NV, HTN, DMII, admitted after a syncopal episode a few days ago, seen in consultation today for L ICA penetrating ulcer noted on CTA, as well as mild R ICA stenosis. Pt denies any prior knowledge of this. States has been feeling generally ill with cough and congestion past week or so. Denies dizziness or lightheadedness, [place], fever, chest pain, palpitations, racing heart, SOB, abd pain, N/V, rest pain, claudication, other complaitns. CTA neck demonstrates no L ICA stenosis, but a small penetrating ulcer is noted, and mild R ICA stenosis of 60%. Allergies Allergy/AdvReac Type Severity Reaction Status Date / Time metronidazole AdvReac Mild Diarrhea Verified 11/20/19 19:43 Home Medications Home Medications Medication Instructions Recorded Confirmed Type Stress B-Complex/Vit C/Zinc 1 tab PO DAILY 09/05/18 11/20/19 History aspirin 81 mg PO DAILY 09/05/18 11/20/19 History atorvastatin 40 mg PO DAILY 09/05/18 11/20/19 History cholecalciferol (vitamin D3) 2,000 unit PO DAILY 09/05/18 11/20/19 History [Vitamin D3] clopidogrel 75 mg PO DAILY 09/05/18 11/20/19 History fluticasone propionate 2 spray INTRANASAL DAILY 09/05/18 11/20/19 History levothyroxine 100 mcg PO DAILYBB 09/05/18 11/20/19 History lorazepam 1 mg PO HS PRN 09/05/18 11/20/19 History losartan 25 mg PO BID 09/05/18 11/20/19 History nitroglycerin [Nitrostat] 0.4 mg SUBLINGUAL UD PRN MDD 3 09/05/18 11/20/19 History DOSES nystatin-triamcinolone 1 applic TOPICAL BID PRN 09/05/18 11/20/19 History potassium chloride [Klor-Con M20] 20 meq PO BID 09/05/18 11/20/19 History sulfacetamide sodium (acne) 1 applic TOPICAL BID 09/05/18 11/20/19 History tramadol 50 mg tablet 50 mg PO BID PRN 05/31/19 11/20/19 History Patient History Medical History Cat bite of right hand with infection (Resolved) Chronic ischemic heart disease, unspecified (Chronic) Congestive heart failure, unspecified (Resolved) Contusion of left foot (Resolved) Diabetes (Chronic) Heart attack (Resolved) Hypertension (Chronic) Hypothyroidism, unspecified (Chronic) Lumbar pain with radiation down left leg (Acute) Postsurgical aortocoronary bypass status (Resolved) Surgical History H/O tubal ligation (Chronic) Hx of CABG (Chronic) Social History Preferred Language: Syriac Communication Ability: Effective Hearing Ability: Normal Legal Document Specialist Required: No Beliefs That Will Affect Care: None marital status: Current Living Situation: Alone current occupational status: retired Other Information That Helps Us Care for You: No Feels Safe at Home: Yes Safety Concerns: Feels Safe At This Time Smoking Status: Unknown if ever smoked Hx Alcohol Use: No Hx Substance Use: No Review of Systems Review of Systems: All systems reviewed & are unremarkable except as noted in HPI & below Physical Exam Constitutional: WD/WN, vitals as above average body habitus, cooperative and comfortable; not in distress Eyes: PERRL, conjunctivae normal, anicteric sclerae ENMT: external ear and nose normal, oropharynx normal Ears: no hearing impairment Neck: trachea midline, no thyromegaly Respiratory: normal respiratory effort, lungs clear to auscultation Auscultation: + diminished lung sounds Cardiovascular: RRR, no murmur, no edema Vessels: femoral pulses present, posterior tibial pulses present, dorsalis pedis pulses present, brachial pulses present and radial pulses present; no carotid bruit and + abnormal peripheral pulses Extremities: normal capillary refill; no edema Gastrointestinal (Abdomen): normal bowel sounds, soft, nontender, no hepatosplenomegaly Musculoskeletal: no cyanosis or clubbing, extremities motor strength 5/5 Skin: no rashes, warm and dry Neurologic: moves all extremities and awake; no focal motor deficits and not confused Psychiatric: A+Ox3, euthymic affect Results & Data Vital Signs (Past 12 Hours) Vital Signs Temp Pulse Pulse Resp BP BP Pulse Ox 11/21/19 07:02 37.0 C 69 19 107/67 91 11/21/19 04:00 37.3 C 82 18 115/72 92 11/21/19 00:39 36.6 C 80 16 152/78 H 93 11/21/19 00:04 84 20 148/81 H 94
--- NOTE | 2019-11-21 12:41 | Hospitalist Progress Note ---
Date of Service November 21, 2019 Assessment & Plan (1) Syncope: Presented with dizzy spell lightheadedness presyncope, Possible secondary to vasovagal, versus benign orthostatic hypotension Time has completely resolved since arrival to the ER, no symptoms overnight or this morning Overnight telemetry shows no evidence of arrhythmia Echocardiogram: Normal LV chamber size and wall motion. Normal LV systolic function, EF 65-70% No segmental left ventricular wall motion abnormalities are noted. grade 1 diastolic dysfunction Mild mitral regurgitation. mild tricuspid regurgitation. MRI of brain shows no evidence of any acute CVA Patient is stable to be discharged home will continue with aspirin Plavix and statin Outpatient follow-up with family physician in a week Carotid stenosis: Minimum carotid stenosis 60% on right side with small left internal carotid artery ulceration noted on CTA of neck Doubt it will cause patient's presenting symptoms Appreciate input from vascular surgery, no indication for vascular intervention Recommends continue with dual antiplatelets and statin, goal LDL less than 70 Repeat carotid ultrasound in 6 months History of coronary artery disease status post CABG: No complaint of angina no shortness of breath or dyspnea on exertion Patient is continued aspirin statin Plavix, echo shows no evidence of wall motion of abnormality CODE STATUS: Full code Disposition: Stable to be discharged home today Lives at home with son, independent in her ADLs, uses walker/cane No recent fall reported Patient will benefit with home health visiting nurse, social service updated Admission and Anticipated Discharge Date Admission Date: November 20, 2019 Anticipated date of discharge: 11/21/19 Subjective Patient denies of any dizzy spell or lightheadedness Ambulating independently No chest pain no fever or chills Has nonproductive cough Arrhythmia noted on telemetry, Eager to be discharged home Review of Systems Review of Systems: All systems reviewed & are unremarkable except as noted in HPI & below Constitutional: no fever, no chills, no fatigue and no weakness Cardiovascular: no chest pain, no dyspnea, no palpitations, no lightheadedness and no syncope Neurologic: no generalized weakness, no dizziness and no syncope Physical Exam Constitutional: WD/WN, vitals as above Eyes: PERRL, conjunctivae normal, anicteric sclerae ENMT: external ear and nose normal, oropharynx normal Neck: trachea midline, no thyromegaly Respiratory: normal respiratory effort; no respiratory distress and no cough Auscultation: + wheezes Cardiovascular: RRR, no murmur, no edema Gastrointestinal (Abdomen): normal bowel sounds, soft, nontender, no hepatosplenomegaly Musculoskeletal: no cyanosis or clubbing, extremities motor strength 5/5 Neurologic: PERRL, EOMI, accommodation nl, no face palsy, no dysarthria Psychiatric: A+Ox3, euthymic affect Results & Data ([facility]) Vital Signs (Past 12 Hours) Vital Signs Temp Pulse Pulse Resp BP Pulse Ox 11/21/19 11:31 36.8 C 66 19 123/77 93 11/21/19 08:00 75 11/21/19 07:02 37.0 C 69 19 107/67 91 11/21/19 04:00 37.3 C 82 18 115/72 92 Diagnostic Findings Head/neck CTA: IMPRESSION: 1. No significant stenosis, occlusion, or aneurysm within the [place] of [place]. 2. Approximately 60% focal stenosis at the origin of the right internal carotid artery. 2. Focal penetrating ulcer at the takeoff of the left internal carotid artery which measures 4 mm. No significant stenosis. MRI of brain with and without contrast: IMPRESSION: 1. No acute intracranial abnormality, specifically there is no evidence of acute or subacute infarct. 2. Age-related involutional changes with moderate to extensive T2/FLAIR hyperintensities about the white matter suggestive of probable chronic microvascular ischemic disease. 3. Indeterminate 1.3 x 1.5 cm T1 and T2 signal lesion within the left parietal calvarium without correlate on the comparison CT scan. As a precautionary measure, evaluation with a nonemergent follow-up bone scan may be considered. CT head noncontrast: Impression: No acute intracranial abnormality. Atrophy and microvascular ischemic changes. Sinus disease as described above. Medications Administered Current Inpatient Medications Acetaminophen (Tylenol) 650 mg PO Q4H PRN PRN Reason: Pain or Fever Stop: 12/21/19 00:23 Aspirin (Ecotrin Ectab) 81 mg PO DAILY [facility] Stop: 12/21/19 08:59 Last Admin: 11/21/19 08:04 Dose: 81 mg Documented by: Atorvastatin Calcium (Lipitor) 40 mg PO DAILY [facility] Stop: 12/21/19 08:59 Last Admin: 11/21/19 08:05 Dose: 40 mg Documented by: Azithromycin (Zithromax) 250 mg PO Q24H [facility] Stop: 11/26/19 21:01 Clopidogrel Bisulfate (Plavix) 75 mg PO DAILY [facility] Stop: 12/21/19 08:59 Last Admin: 11/21/19 08:06 Dose: 75 mg Documented by: Fluticasone Propionate (Flonase) 2 sprays NA DAILY [facility] Stop: 12/21/19 08:59 Last Admin: 11/21/19 08:04 Dose: 2 sprays Documented by: Gadobutrol (Gadavist 65ml) 9 ml IV ONCE PRN PRN Reason: Interaction Checking Stop: 11/25/19 01:58 Last Admin: 11/21/19 01:40 Dose: 9 ml Documented by: Guaifenesin/Codeine Phosphate (Robitussin-Ac Sugar Free) 5 ml PO Q6H PRN PRN Reason: Cough Stop: 12/21/19 00:23 Last Admin: 11/21/19 00:40 Dose: 5 ml Documented by: Levothyroxine Sodium (Synthroid) 100 mcg PO DAILYBB [facility] Stop: 12/21/19 06:29 Last Admin: 11/21/19 05:51 Dose: 100 mcg Documented by: Lorazepam (Ativan) 1 mg PO HS PRN PRN Reason: Insomnia Stop: 12/21/19 00:23 Losartan Potassium (Cozaar) 25 mg PO BID [facility] Stop: 12/21/19 00:23 Last Admin: 11/21/19 08:04 Dose: 25 mg Documented by: Meclizine HCl (Antivert) 12.5 mg PO TID PRN PRN Reason: Vertigo Stop: 12/21/19 06:59 Nitroglycerin (Nitrostat) 0.4 mg SL UD PRN PRN Reason: Chest Pain Stop: 12/21/19 00:23 Nystatin/Triamcinolone Acetonide (Mycolog Ii) 1 appln EXT BID PRN PRN Reason: [place] Stop: 12/21/19 00:23 Ondansetron HCl (Zofran) 4 mg IV Q6H PRN PRN Reason: Nausea Stop: 12/21/19 00:23 Polyethylene Glycol (Miralax Powder Packet) 17 gm PO DAILY PRN PRN Reason: Constipation Stop: 12/21/19 00:23 Potassium Chloride (Klor-Con M20) 20 meq PO BID [facility] Stop: 12/21/19 00:23 Last Admin: 11/21/19 08:05 Dose: 20 meq Documented by: Tramadol HCl (Ultram) 50 mg PO BID PRN PRN Reason: Pain Stop: 12/21/19 00:23 Vitamin B Complex (Vitamin B Complex) 1 tab PO DAILY [facility] Stop: 12/21/19 08:59 Last Admin: 11/21/19 08:06 Dose: 1 tab Documented by: Vitamin D (Vitamin D3) 2,000 units PO DAILY [facility] Stop: 12/21/19 08:59 Last Admin: 11/21/19 08:07 Dose: 2,000 units Documented by: (1) Syncope Syncope type: vasovagal syncope Qualified Code(s): R55 - Syncope and collapse
--- NOTE | 2019-11-21 14:05 | Discharge Summary ---
Date of Service November 21, 2019 Admission HPI Per Admitting Provider DICTATED BY: Stanford Taylor MD DATE OF ADMISSION: 11/20/2019 CHIEF COMPLAINT: Vertigo and fall. HISTORY OF PRESENT ILLNESS: This is a 79-year-old female with past medical history significant for non-ST elevation CA in 2007 with urgent CABG; history of diabetes, currently not on medication; hypertension; obesity; hyperlipidemia; PVCs; hypothyroidism; depression, who lives with his family, presents with vertigo kind of symptoms. The patient was here couple of days ago in the ER because of syncope. She was at the [facility]. When she got up, she felt lightheaded and lost consciousness. At that time, no seizure-like activity . In the Er she did was advised for admission, but the patient decided to go home.She is also having cough since several weeks now. She had a pneumonia and flu about a month ago. Since then the cough did not go away. She is still coughing a lot and she is not sleeping well because of cough, mostly dry cough. Denies any fever, chills. No chest pain, no shortness of breath, no headache. Feeling dizzy and lightheaded when walking and also some imbalance when ambulating. Today again while she was ambulating, she again felt the room spinning and fell down, but she was able to get up and walk again. Because of the ongoing symptoms, and she had second episode of falling down, she was brought in the ER. Currently resting comfortably and hemodynamically stable. Family in the room. Denies any headache, no blurred vision, no earache. Has some runny nose. Denies any sore throat. No dysphagia, odynophagia. Appetite is okay. No abdominal pain. Normal bladder movements. No hematuria. She has couple episodes of diarrhea today, but no black stools or blood in the stools. Denies any swelling in the legs. The imaging studies in the ER showed CT of the head is unremarkable. CTA of the head and neck was also done, which showed 60% focal stenosis of the origin of right internal carotid artery and focal penetrating ulcer at tip of the left internal carotid artery measuring 4 mm. No significant stenosis. Principal Diagnosis DIZZY SPELL , CAROTID ARTERY NARROWING /STENOSIS Discharge Exam Constitutional WD/WN, vitals as above Eyes PERRL, conjunctivae normal, anicteric sclerae ENMT external ear and nose normal, oropharynx normal Neck trachea midline, no thyromegaly Respiratory normal respiratory effort; no respiratory distress and no cough Auscultation: + wheezes Cardiovascular RRR, no murmur, no edema Gastrointestinal (Abdomen) normal bowel sounds, soft, nontender, no hepatosplenomegaly Musculoskeletal no cyanosis or clubbing, extremities motor strength 5/5 Neurologic PERRL, EOMI, accommodation nl, no face palsy, no dysarthria Psychiatric A+Ox3, euthymic affect Discharge Data Allergies Allergy/AdvReac Type Severity Reaction Status Date / Time metronidazole AdvReac Mild Diarrhea Verified 11/20/19 19:43 Consultations 11/20/19 22:14 ED Decision to Admit Stat 11/21/19 00:24 Consult Case Management - Discharge Planning Routine 11/21/19 07:25 Consult Vascular Surgery Routine 11/21/19 08:00 Consult Neurology Routine Ordered Studies 11/20/19 19:01 CT angio head w con Stat CT angio neck with con Stat CT head/brain wo con Stat 11/21/19 00:24 MR brain wo/w con Urgent Hospital Course (1) Syncope: Presented with dizzy spell lightheadedness presyncope, Possible secondary to vasovagal, versus benign orthostatic hypotension Time has completely resolved since arrival to the ER, no symptoms overnight or this morning Overnight telemetry shows no evidence of arrhythmia Echocardiogram: Normal LV chamber size and wall motion. Normal LV systolic function, EF 65-70% No segmental left ventricular wall motion abnormalities are noted. grade 1 diastolic dysfunction Mild mitral regurgitation. mild tricuspid regurgitation. MRI of brain shows no evidence of any acute CVA Patient is stable to be discharged home will continue with aspirin Plavix and statin Outpatient follow-up with family physician in a week Carotid stenosis: Minimum carotid stenosis 60% on right side with small left internal carotid artery ulceration noted on CTA of neck Doubt it will cause patient's presenting symptoms Appreciate input from vascular surgery, no indication for vascular intervention Recommends continue with dual antiplatelets and statin, goal LDL less than 70 Repeat carotid ultrasound in 6 months History of coronary artery disease status post CABG: No complaint of angina no shortness of breath or dyspnea on exertion Patient is continued aspirin statin Plavix, echo shows no evidence of wall motion of abnormality CODE STATUS: Full code Disposition: Stable to be discharged home today Lives at home with son, independent in her ADLs, uses walker/cane No recent fall reported Patient will benefit with home health visiting nurse, social service updated Total Time Total Time Spent Total Time Spent (In Minutes): Approximately 40 minutes Total Time Includes: Examination of the Patient, Discharge Planning and Medication Reconciliation Discharge Plan Discharge Items Patient Disposition: Home - Self-Care Reason For Visit: VERTIGO, FALL Discharge Diagnosis: DIZZY SPELL , CAROTID ARTERY NARROWING /STENOSIS Activity: Resume your previous activity Non-emergency contact: Primary Care Provider Call non-emergency contact if: you have any medication questions Follow-up/Referrals: Mario Goldsmith MD [Primary Care Provider] - 11/25/19 10:05 am Diet: Heart Healthy Addtl Attending Provider Instructions: REPEAT TSH IN 6 WEEKS Pending Studies at Discharge: Yes Studies:: REPEAT CAROTID ULTRASOUND IN 6 MONTHS Stand-Alone Forms: My [employer]sm, Smoking Cessation Medications and DC Order Prescriptions: New albuterol sulfate 90 mcg/actuation HFA aerosol inhaler 2 puffs INH Q6H PRN (Reason: shortness of breath or wheezing) 30 Days Qty: 8.5 RF: 2 Continued tramadol 50 mg tablet 50 mg PO BID PRN (Reason: Pain) RF: 0 atorvastatin 40 mg Tablet 40 mg PO DAILY RF: 0 sulfacetamide sodium (acne) 10 % Suspension 1 applic Topical BID RF: 0 clopidogrel 75 mg Tablet 75 mg PO DAILY RF: 0 potassium chloride [Klor-Con M20] 20 mEq Tablet,Er Particles/Crystals 20 meq PO BID RF: 0 losartan 25 mg Tablet 25 mg PO BID RF: 0 nystatin-triamcinolone 100,000-0.1 unit/g-% Cream 1 applic TOPICAL BID PRN (Reason: [place]) RF: 0 nitroglycerin [Nitrostat] 0.4 mg Tablet, Sublingual 0.4 mg Sublingual UD MDD 3 DOSES PRN (Reason: Chest Pain) RF: 0 aspirin 81 mg Tablet,Chewable 81 mg PO DAILY RF: 0 lorazepam 1 mg Tablet 1 mg PO HS PRN (Reason: Insomnia) RF: 0 fluticasone propionate 50 mcg/actuation [place],Suspension 2 spray INTRANASAL DAILY RF: 0 levothyroxine 100 mcg Capsule 100 mcg PO DAILYBB RF: 0 Stress B-Complex/Vit C/Zinc 1 tab PO DAILY RF: 0 cholecalciferol (vitamin D3) [Vitamin D3] 2,000 unit Capsule 2,000 unit PO DAILY RF: 0 Discharge Orders: Discharge Order (Routine); Ordered 11/21/19 Ordered By: Hazel George/Other Patient Handouts: A1C Admission Data Admit Date/Time: 11/20/19 23:07 Attending Provider: Hazel Patel Admit Provider: Stanford Taylor Primary Care Provider: Mario Goldsmith Other Providers: Stanford Taylor ; Yasmeen Hutchinson ; Dakota Nelson ; Yasmeen Reeves ; Jorge Gao ; Bolivar Blum Other Interventions: Discharge Summary Assessment (RN) Last Done: 11/21/19 13:13
[2019-11-21] MEDS ORDERED: AZITHROMYCIN 250 MG TAB PO SCH (21:00)
== END 2019-11-21 14:23 | disposition home health service (06) | DRG 312 ==
LOC: ED 18:31 → 2S 23:07 → INTOOBSV 23:07 → OBSVTOIN 23:07 → 2S 11-21 00:04